=== PATIENT | female | born 1955 | race Caucasian/White ===

== ENCOUNTER → 2017-04-03 | Day surgery (SDC) | payer MEDICARE, BC ==
[~2017-04-03] MED LIST: Lactated Ringers 1,000 ML IV SCH; Sodium Chloride 0.9% 10 ML Syringe FLUSH PRN
== END ==
LOC: FB.SDS 06:47
PROVIDERS: ATTEND Surgery
DX: Z12.11 Encounter for screening for malignant neoplasm of colon (principal); Z53.8 Procedure and treatment not carried out for other reasons; Z88.1 Allergy status to other antibiotic agents; Z88.8 Allergy status to other drugs, medicaments and biological substances

== ENCOUNTER 2017-04-07 08:55 | Day surgery (SDC) | payer MEDICARE, BC ==
[2017-04-07] MEDS ORDERED: Lactated Ringers 1,000 ML IV SCH (09:00)
[2017-04-07] MEDS ORDERED: Midazolam 1 MG/ML 2 ML SDV IV ONE (10:11)
[2017-04-07] MEDS ORDERED: hydrALAZINE 20 MG/ML SDV IV ONE (10:11)
[2017-04-07] MEDS ORDERED: Labetalol 100 MG/20 ML MDV IV ONE (10:11)
[2017-04-07] MEDS ORDERED: Propofol 200 MG/20 ML SDV IV ONE (10:11)
--- NOTE | 2017-04-07 10:56 | PCM.OPNOTE ---
- General Post-Op/Procedure Note Date of Surgery/Procedure: 04/07/17 Operative Procedure(s): c scope Findings: rectal mass at 15-18 cm Pre Op Diagnosis: constipation Post-Op Diagnosis: rectal mass Anesthesia Technique: MAC Primary Surgeon: Reddy Banuelos Anesthesia Provider: Les Rosa Pathology: rectal mass Complications: None Condition: Good Free Text/Narrative:: see dictation [id number]
[2017-04-07 11:41] VITALS: BP 148/79
--- NOTE | 2017-04-07 12:53 | OR ---
DATE OF OPERATION: 04/07/2017 SURGEON: Reddy Banuelos MD PROCEDURE PERFORMED: Colonoscopy. PREOPERATIVE DIAGNOSIS: Longstanding history of constipation, need for screening C scope. POSTOPERATIVE DIAGNOSIS: Rectal mass 15 cm. INDICATIONS FOR PROCEDURE: This is a 61-year-old white female who presents for her first initial screening colonoscopy. The only real issue she has noted is some issues with constipation in the past. DESCRIPTION OF OPERATION: After an excellent IV sedation was administered, digital rectal exam was performed. No marked abnormality noted. The flexible colonoscope was inserted and approximately 15 cm near-obstructing mass was encountered. We were unable to safely advance the scope through the lesion. We were able to see a small lumen. Multiple circumferential biopsies and photos were taken. The scope was then removed. The patient tolerated the procedure well, and was taken to recovery room in good condition. /[id number] /[id number]
== END 2017-04-07 12:00 | disposition home or self-care (01) ==
LOC: FB.SDS 08:55
PROVIDERS: ATTEND Surgery
DX: Z12.11 Encounter for screening for malignant neoplasm of colon (principal); C20 Malignant neoplasm of rectum; E78.00 Pure hypercholesterolemia, unspecified; E03.9 Hypothyroidism, unspecified; F41.8 Other specified anxiety disorders; I10 Essential (primary) hypertension; Z88.1 Allergy status to other antibiotic agents; Z88.8 Allergy status to other drugs, medicaments and biological substances; Z79.899 Other long term (current) drug therapy; Z98.890 Other specified postprocedural states
CPT/HCPCS: 45380; 88305; J0360; J2250; J2704; J7120; 00810-QZ